=== PATIENT | male | born 1960 | race Caucasian/White ===

== ENCOUNTER 2021-04-21 22:26 | Emergency (ER) | payer OTHER ==
[2021-04-21] MEDS ORDERED: ACETAMINOPHEN TAB 500 MG TAB PO STA (22:58)
[2021-04-21] MEDS ORDERED: DEXAMETHASONE SOD PHOSPHATE 10 MG/ML 1 ML VIAL IVP STA (22:58)
[2021-04-21] MEDS ORDERED: SODIUM CHLORIDE 0.9% 1,000 ML IV STA (22:58)
[2021-04-21] MEDS ORDERED: KETOROLAC 30 MG/ML 1 ML VIAL IVP STA (22:58)
[2021-04-21] MEDS ORDERED: ALBUTEROL HFA INHALER INHALATION STA (22:58)
--- NOTE | 2021-04-21 23:00 | ED ---
Recheck HPI - General Chief Complaint: Upper Respiratory Infection Stated Complaint: Covid+,Wants antibody Time Seen by Provider: 04/21/21 22:33 Source: patient, RN notes reviewed, old records reviewed Mode of arrival: ambulatory Limitations: no limitations - History of Present Illness Initial Comments: This is a 61-year-old male DF for evaluation patient resents today for evaluation regards to not feeling well positive coronavirus test. Patient is h ere requesting otherwise. Patient hasn't shortness breath bodyaches and pains but no other significant complaints MD Complaint: abnormal lab (Positive for coronavirus) -: days(s) Returns Today for: Called Because of Abnormal Lab/Test, persistent/worsening pain related to initial visit Symptoms Since Prior Visit: worsening pain Context: planned re-check Associated Symptoms: fever, chills, malaise, nausea Treatments Prior to Arrival: other (none) - Related Data Allergies Allergy/AdvReac Type Severity Reaction Status Date / Time No Known Allergies Allergy Verified 04/21/21 22:32 Review of Systems ROS Statement: Those systems with pertinent positive or pertinent negative responses have been documented in the HPI. ROS Other: All systems not noted in ROS Statement are negative. Past Medical History Past Medical History: Atrial Fibrillation, Heart Failure, Diabetes Mellitus History of Any Multi-Drug Resistant Organisms: None Reported Past Surgical History: Heart Catheterization With Stent Smoking Status: Never smoker Past Alcohol Use History: None Reported Past Drug Use History: None Reported General Exam Limitations: no limitations General appearance: alert, in no apparent distress, anxious Head exam: Present: atraumatic, normocephalic, normal inspection Eye exam: Present: normal appearance, PERRL, EOMI. Absent: scleral icterus, conjunctival injection, periorbital swelling ENT exam: Present: normal exam, mucous membranes moist Neck exam: Present: normal inspection. Absent: tenderness, meningismus, lymphadenopathy Respiratory exam: Present: normal lung sounds bilaterally. Absent: respiratory distress, wheezes, rales, rhonchi, stridor Cardiovascular Exam: Present: normal rhythm, tachycardia, normal heart sounds. Absent: systolic murmur, diastolic murmur, rubs, gallop, clicks GI/Abdominal exam: Present: soft, normal bowel sounds. Absent: distended, tenderness, guarding, rebound, rigid Extremities exam: Present: normal inspection, full ROM, normal capillary refill. Absent: tenderness, pedal edema, joint swelling, calf tenderness Back exam: Present: normal inspection Neurological exam: Present: alert, oriented X3, CN II-XII intact Psychiatric exam: Present: normal affect, normal mood Skin exam: Present: warm, dry, intact, normal color. Absent: rash Course Vital Signs 04/21/21 04/22/21 04/22/21 22:27 00:10 00:52 Temperature 99.0 F 98.7 F Pulse Rate 115 H 109 H 108 H Respiratory 22 20 18 Rate Blood Pressure 173/88 168/96 155/87 O2 Sat by Pulse 96 96 97 Oximetry - Reevaluation(s) Reevaluation #1: 04/22/21 01:00 Medical record is reviewed Reevaluation #2: 04/22/21 01:00 Patient symptoms are improved no reaction to antibiotics and can be discharged home Medical Decision Making - Medical Decision Making 61 male to the ER for evaluation patient presents today for evaluation regards to significant shortness of breath cough or congestion. Patient presents today for evaluation of known coronavirus positive outpatient coronavirus test. Patient is here requesting antibiotics with some significant body aches and pains. No other complaints - Lab Data Result diagrams: 04/21/21 23:29 04/21/21 23:29 Lab Results 04/21/21 04/21/21 Range/Units 23:29 23:29 WBC 5.5 (3.8-10.6) k/uL RBC 5.26 (4.30-5.90) m/uL Hgb 15.4 (13.0-17.5) gm/dL Hct 45.7 (39.0-53.0) % MCV 86.9 (80.0-100.0) fL MCH 29.3 (25.0-35.0) pg MCHC 33.7 (31.0-37.0) g/dL RDW 13.1 (11.5-15.5) % Plt Count 194 (150-450) k/uL MPV 8.2 Neutrophils % 65 % Lymphocytes % 18 % Monocytes % 10 % Eosinophils % 2 % Basophils % 1 % Neutrophils # 3.6 (1.3-7.7) k/uL Lymphocytes # 1.0 (1.0-4.8) k/uL Monocytes # 0.6 (0-1.0) k/uL Eosinophils # 0.1 (0-0.7) k/uL Basophils # 0.0 (0-0.2) k/uL Sodium 139 (137-145) mmol/L Potassium 4.0 (3.5-5.1) mmol/L Chloride 107 (98-107) mmol/L Carbon Dioxide 21 L (22-30) mmol/L Anion Gap 11 mmol/L BUN 24 H (9-20) mg/dL Creatinine 1.91 H (0.66-1.25) mg/dL Est GFR (CKD-EPI)AfAm 42 (>60 ml/min/1.73 sqM) Est GFR (CKD-EPI)NonAf 37 (>60 ml/min/1.73 sqM) Glucose 200 H (74-99) mg/dL Calcium 9.2 (8.4-10.2) mg/dL Magnesium 2.1 (1.6-2.3) mg/dL Total Bilirubin 0.6 (0.2-1.3) mg/dL AST 40 (17-59) U/L ALT 28 (4-49) U/L Alkaline Phosphatase 92 (38-126) U/L Lactate Dehydrogenase 507 (313-618) U/L C-Reactive Protein 1.8 H (<1.0) mg/dL Total Protein 7.3 (6.3-8.2) g/dL Albumin 3.9 (3.5-5.0) g/dL - EKG Data -: EKG Interpreted by Me (EKG shows afib RVR rate 113 PQRS 108 QTc 444) - Radiology Data Radiology results: report reviewed (Chest x-rays negative for acute disease), image reviewed Disposition Clinical Impression: Coronavirus infection Disposition: HOME SELF-CARE Condition: Good Instructions (If sedation given, give patient instructions): Coronavirus D isease 2019 (COVID-19) Is patient prescribed a controlled substance at d/c from ED?: No Referrals: Barrera Henning MD [Primary Care Provider] - 1-2 days
[2021-04-21] MEDS ORDERED: CASIRIVIMAB (REGN10933) (EUA) 600 MG, IMDEVIMAB (REGN10987) (EUA) 600 MG in SODIUM CHLO... IVPB ONE (23:15)
[2021-04-21] MEDS ORDERED: SODIUM CHLORIDE 0.9% 50 ML IVPB ONE (23:15)
--- NOTE | 2021-04-21 23:43 | XR ---
EXAMINATION TYPE: XR chest 1V portable DATE OF EXAM: 04/21/2021 COMPARISON: NONE HISTORY: Short of breath TECHNIQUE: Single view FINDINGS: There is no heart failure nor confluent pneumonic infiltrate. Costophrenic angles are clear . There are no hilar masses. Bony thorax is intact. IMPRESSION: No active cardiopulmonary disease.
[2021-04-21 23:49] LABS: Basophils % (A) 1 %; Eosinophils # (A) 0.1 k/uL (0-0.7); Eosinophils % (A) 2 %; HCT 45.7 % (39.0-53.0); HGB 15.4 gm/dL (13.0-17.5); Lymphocytes % (A) 18 %; MCH 29.3 pg (25.0-35.0); MCHC 33.7 g/dL (31.0-37.0); MCV 86.9 fL (80.0-100.0); Mean Platelet Volume 8.2; Monocytes # (A) 0.6 k/uL (0-1.0); Monocytes % (A) 10 %; Neutrophils # (A) 3.6 k/uL (1.3-7.7); Neutrophils % (A) 65 %; Platelet Count 194 k/uL (150-450); RBC 5.26 m/uL (4.30-5.90); RDW 13.1 % (11.5-15.5); WBC 5.5 k/uL (3.8-10.6)
[2021-04-22 00:01] LABS: Albumin 3.9 g/dL (3.5-5.0); C Reactive Protein 1.8 mg/dL (<1.0); Calcium 9.2 mg/dL (8.4-10.2); Magnesium 2.1 mg/dL (1.6-2.3); Total Bilirubin 0.6 mg/dL (0.2-1.3); Total Protein 7.3 g/dL (6.3-8.2)
[2021-04-22 01:46] VITALS: RESP 18; TEMP 98.7
[2021-04-22 02:28] VITALS: BP 157/89; PULSE 111
== END 2021-04-22 02:00 | disposition home or self-care (01) ==
LOC: EC 22:26
DX: U07.1 COVID-19 (principal); E11.9 Type 2 diabetes mellitus without complications; I50.9 Heart failure, unspecified; I48.91 Unspecified atrial fibrillation
CPT/HCPCS: 36415; 94640; 93005; 80053; 83615; 83735; 85025; 86140; 71045; 99284; 96374; 96375; 96361; J1100; J1885; Q0243